=== PATIENT | male | born 1980 | race Caucasian/White ===

== ENCOUNTER → 2016-08-25 | Outpatient (CLI) | payer OTHER ==
--- NOTE | 2016-09-03 12:58 | EM ---
DATE OF SERVICE: 08/25/2016 AGE: 36Y SEX: M INDICATIONS: DCG or 24-hour monitor The patient was monitored for 24 hours. The baseline rhythm appeared to be a sinus mechanism with a minimal heart rate of 43 beats per minute, max heart rate 154 beats per minute and average heart rate of 64 beats per minute. The baseline rhythm appeared to be a sinus mechanism. Ventricular ectopic events were reported in less than 1% of the total beat count. Supraventricular ectopic events were reported in less than 1% of the total beat count. The patient had no evidence of sustained tachy or rk arrhythmia noted. The patient used the marker in association with sinus bradycardia. CONCLUSION: 1. Sinus rhythm as a baseline mechanism. 2. Rare ventricular ectopic events. 3. Rare supraventricular ectopic events. 4. No evidence of any advanced AV block seen. 5. No evidence of any sinus pause or sinus arrest. 6. Patient marker used twice in association with sinus bradycardia.
== END | disposition home or self-care (01) ==
LOC: RADECHMAIN 12:21
PROVIDERS: ATTEND Family Medicine
DX: I49.3 Ventricular premature depolarization (principal)
CPT/HCPCS: 93225; 93226